=== PATIENT | male | born 2000 | race Caucasian/White ===

== ENCOUNTER 2019-08-28 06:10 | Emergency (ER) | payer OTHER ==
[~2019-08-28] VITALS: Ht 185.4 cm; Wt 79.4 kg
[2019-08-28 06:40] LABS: ABSOLUTE NEUTROPHILS 7.8 thou/uL (1.4-8.2); BASOPHILS 0.3 % (0.0-2.0); HEMATOCRIT 48.3 % (42.0-52.0); HEMOGLOBIN 15.7 gm/dL (14.0-18.0); LYMPHOCYTES 11.3 % (24.0-44.0); MCH 26.7 pg (26.0-34.0); MCHC 32.4 g/dL (28.0-37.0); MCV 82.4 fL (80.0-100.0); MONOCYTES 1.4 % (1.0-8.0); PLATELET COUNT 403 thou/uL (150-400); RBC 5.86 mil/uL (4.50-6.00); RDW 14.9 % (10.5-14.5)
[2019-08-28 06:45] LABS: ANION GAP 11 mmol/L (7-16); BUN 13 mg/dL (7-18); CALCIUM 8.6 mg/dL (8.5-10.1); CHLORIDE 104 mmol/L (98-107); CO2 27 mmol/L (21-32); CREATININE 1.2 mg/dL (0.7-1.3); GLUCOSE 140 mg/dL (74-106); SODIUM 142 mmol/L (136-145)
[2019-08-28 06:49] LABS: ALBUMIN 4.9 g/dL (3.4-5.0); SALICYLATE < 2.8 mg/dL (2.8-20.0); SGOT 43 U/L (15-37); SGPT 41 U/L (30-65); TOTAL BILIRUBIN 0.2 mg/dL (<0.1-1.0); TOTAL PROTEIN 9.1 g/dL (6.4-8.2)
[2019-08-28 14:13] VITALS: BP 121/79
--- NOTE | 2019-08-29 07:52 | EKG ---
[facility] [address] ELECTROCARDIOGRAM REPORT Name: MICHELLE EDWARDS Room #: DEP [facility]#: [id number] Admission: 08/28/19 Attend Phys: Discharge: 08/28/19 Date of : [birth year] Report #: [id number] THIS REPORT FOR: cc: FAM - Family physician unknown FAM - Family physician unknown Irvin Larsen MD [facility] ~ THIS REPORT FOR: //name// [facility] ED Test Date: 2019-08-28 Test Time: 07:14:20 Pat Name: MICHELLE EDWARDS Department: Room: Gender: Mysql Developer: : 2000 Requested By: Boni Meyers Order Number: [id number] MD: Irvin Larsen Measurements Intervals [place] Rate: 106 P: 20 NM: 134 QRS: 89 QRSD: 84 T: 56 QT: 315 QTc: 419 Interpretive Statements Sinus tachycardia Otherwise normal tracing No previous ECG available for comparison Electronically Signed On 08-29-2019 7:51:25 [employer] by Irvin Larsen [email or web address] <ELECTRONICALLY SIGNED> By: Irvin Larsen MD, FAC 08/29/19 [id number] 3 Irvin Larsen MD, FACC /EPI
== END 2019-08-28 14:14 | disposition home or self-care (01) ==
LOC: ER 06:10
PROVIDERS: Emergency Medicine
DX: F10.129 Alcohol abuse with intoxication, unspecified (principal); R11.10 Vomiting, unspecified; Z98.890 Other specified postprocedural states; Z88.5 Allergy status to narcotic agent